=== PATIENT | female | born 1965 | race Hispanic/Latino ===

== ENCOUNTER 2022-12-07 10:46 | Day surgery (SDC) | payer OTHER ==
[2022-12-03 10:44] VITALS: BP 128/79
[~2022-12-07] VITALS: Ht 160 cm; Wt 81.5 kg
[2022-12-07] VITALS (7 sets, daily range): BP systolic 95–133; BP diastolic 54–75
[~2022-12-07 10:46] MED LIST: LISI30TA4 PO; MVIT PO
[2022-12-07] MEDS ORDERED: 0.9%NACL 1000ML 1,000 ML IV ONE (11:01)
[2022-12-07] MEDS ORDERED: PROPOFOL 10 MG/ML 20ML VIAL IV ONE (12:43)
[2022-12-07] MEDS ORDERED: LIDOCAINE PF 100MG/5ML (2%) SYRINGE 5ML ONE (12:43)
== END 2022-12-07 13:28 | disposition home or self-care (01) ==
LOC: DAH 10:46 → ENDO 10:46
PROVIDERS: ATTEND Internal Medicine Gastroenterology
DX: R14.0 Abdominal distension (gaseous) (principal); Z20.822 Contact with and (suspected) exposure to COVID-19; D64.9 Anemia, unspecified; K21.9 Gastro-esophageal reflux disease without esophagitis; K62.5 Hemorrhage of anus and rectum; K64.0 First degree hemorrhoids; I10 Essential (primary) hypertension; Z98.84 Bariatric surgery status; Z98.890 Other specified postprocedural states; Z72.89 Other problems related to lifestyle; Z86.010 Personal history of colon polyps; Z98.0 Intestinal bypass and anastomosis status; Z79.899 Other long term (current) drug therapy
CPT/HCPCS: 87426; 81025; 43239; J7030; J2001; J2704; A4620; A4215 ×2; A4223; A4222; A4221; A4663; A4606